=== PATIENT | female | born 1980 | race Caucasian/White ===

== ENCOUNTER 2018-05-09 20:25 | Emergency (ER) | payer OTHER ==
[~2018-05-09] VITALS: Ht 160 cm; Wt 81.6 kg
[2018-05-09] MEDS ORDERED: OMEPRAZOLE10 MG PO (21:16)
== END 2018-05-09 23:54 | disposition home or self-care (01) ==
LOC: ER 20:25
DX: S13.4XXA Sprain of ligaments of cervical spine, initial encounter (principal); M62.838 Other muscle spasm; V49.9XXA Car occupant (driver) (passenger) injured in unspecified traffic accident, initial encounter; Y93.89 Activity, other specified; Y92.488 Other paved roadways as the place of occurrence of the external cause; Y99.8 Other external cause status

== ENCOUNTER 2018-10-24 09:43 | Outpatient (CLI) | payer OTHER ==
[~2018-10-24 09:43] MED LIST: OMEPRAZOLE10 MG PO
== END 2018-10-24 10:44 | disposition home or self-care (01) ==
LOC: LAB 09:43
DX: E78.49 Other hyperlipidemia (principal); R42 Dizziness and giddiness; Z00.00 Encounter for general adult medical examination without abnormal findings

== ENCOUNTER 2019-02-12 13:59 | Emergency (ER) | payer OTHER ==
[~2019-02-12] VITALS: Ht 160 cm; Wt 83.9 kg
[2019-02-12] MEDS ORDERED: CANNABIS (14:17)
[2019-02-12] MEDS ORDERED: NORFLEX100MG PO (14:43)
[2019-02-12] MEDS ORDERED: DICLOFENAC SODI75 MG PO (14:43)
== END 2019-02-12 15:00 | disposition home or self-care (01) ==
LOC: ER 13:59
DX: M62.830 Muscle spasm of back (principal)

== ENCOUNTER 2020-04-02 01:11 | Emergency (ER) | payer OTHER ==
[~2020-04-02] VITALS: Ht 160 cm; Wt 77.1 kg
[~2020-04-02 01:11] MED LIST changes: +CANNABIS; +DICLOFENAC SODI75 MG PO; +NORFLEX100MG PO
[2020-04-02] MEDS ORDERED: OMEPRAZOLE 40 MG. (01:28)
[2020-04-02] MEDS ORDERED: OMEPRAZOLE20 MG PO (04:52)
[2020-04-02] MEDS ORDERED: LEVSIN0.125 MG PO (04:52)
[2020-04-02] MEDS ORDERED: CARAFATE1 GM PO (04:52)
== END 2020-04-02 05:06 | disposition home or self-care (01) ==
LOC: ER 01:11
DX: K21.00 Gastro-esophageal reflux disease with esophagitis, without bleeding (principal); R10.13 Epigastric pain; Z03.818 Encounter for observation for suspected exposure to other biological agents ruled out

== ENCOUNTER 2020-04-04 00:44 | Emergency (ER) | payer OTHER ==
[~2020-04-04] VITALS: Ht 160 cm; Wt 77.1 kg
[~2020-04-04 00:44] MED LIST changes: +CARAFATE1 GM PO; +LEVSIN0.125 MG PO; +OMEPRAZOLE 40 MG.; +OMEPRAZOLE20 MG PO
== END 2020-04-04 03:31 | disposition home or self-care (01) ==
LOC: ER 00:44
DX: T40.7X1A Poisoning by cannabis (derivatives), accidental (unintentional), initial encounter (principal); F12.280 Cannabis dependence with cannabis-induced anxiety disorder; Y92.89 Other specified places as the place of occurrence of the external cause

== ENCOUNTER 2020-04-06 02:46 | Emergency (ER) | payer OTHER ==
[~2020-04-06] VITALS: Ht 160 cm; Wt 77.1 kg
== END 2020-04-06 05:39 | disposition home or self-care (01) ==
LOC: ER 02:46
DX: R68.2 Dry mouth, unspecified (principal); T45.0X5A Adverse effect of antiallergic and antiemetic drugs, initial encounter

== ENCOUNTER 2021-02-10 20:22 | Emergency (ER) | payer OTHER ==
[~2021-02-10] VITALS: Ht 157.5 cm; Wt 59.0 kg
== END 2021-02-10 21:22 | disposition home or self-care (01) ==
LOC: ER 20:22
DX: S60.221A Contusion of right hand, initial encounter (principal); Y92.89 Other specified places as the place of occurrence of the external cause; W18.49XA Other slipping, tripping and stumbling without falling, initial encounter